=== PATIENT | female | born 2000 | race Caucasian/White ===

== ENCOUNTER → 2021-04-20 | Outpatient (CLI) | payer OTHER ==
[~2021-04-20] MED LIST: BENTYL 20MG TAB20 MG PO; CLEOCIN HCL300 MG PO; MACROBID 100 M100 MG PO; Magic Mouth Wash PO; PREDNISONE50 MG PO; ZOFRAN ODT 4 MG4 MG SL; ZOFRAN4 MG PO
[2021-04-20 17:24] LABS: HEMOGLOBIN 13.5 gm/dl (12.3-15.3); RED BLOOD COUNT 4.46 M/UL (4.00-5.10); WHITE BLOOD COUNT 8.3 K/UL (4.5-11.0)
[2021-04-20 17:42] LABS: BUN/CREATININE RATIO 13 (0-10)
== END ==
LOC: LBRF 16:42
PROVIDERS: Internal Medicine Pulmonary Disease
DX: J47.1 Bronchiectasis with (acute) exacerbation (principal)
CPT/HCPCS: 80048; 85025; 86140

== ENCOUNTER 2021-04-28 23:17 | Emergency (ER) | payer OTHER | END 2021-04-29 01:35 | disposition home or self-care (01) | LOC: ER1 23:17 | DX: S91.205A Unspecified open wound of left lesser toe(s) with damage to nail, initial encounter (principal); Z23 Encounter for immunization; X58.XXXA Exposure to other specified factors, initial encounter | CPT/HCPCS: 73610; 73630; 90715; 99283 ==

== ENCOUNTER → 2021-09-16 | Outpatient (CLI) | payer OTHER | LOC: LAB 08:49 | DX: Z32.00 Encounter for pregnancy test, result unknown (principal) | CPT/HCPCS: 36415; 84702 ==

== ENCOUNTER → 2021-09-18 | Outpatient (CLI) | payer OTHER | LOC: LAB 10:20 | DX: Z32.01 Encounter for pregnancy test, result positive (principal) | CPT/HCPCS: 36415; 84702 ==

== ENCOUNTER → 2021-09-24 | Outpatient (CLI) | payer OTHER | LOC: LAB 08:13 | DX: Z32.01 Encounter for pregnancy test, result positive (principal) | CPT/HCPCS: 36415; 84702 ==

== ENCOUNTER 2021-10-12 16:31 | Emergency (ER) | payer OTHER ==
[2021-10-12 17:48] LABS: HEMOGLOBIN 13.6 gm/dl (12.3-15.3); RED BLOOD COUNT 4.47 M/UL (4.00-5.10); WHITE BLOOD COUNT 14.2 K/UL (4.5-11.0)
[2021-10-12 18:11] LABS: BUN/CREATININE RATIO 13 (0-10)
== END 2021-10-12 20:50 | disposition home or self-care (01) ==
LOC: ER1 16:31
PROVIDERS: Physician Assistant
DX: O99.891 Other specified diseases and conditions complicating pregnancy (principal); R10.32 Left lower quadrant pain; Z90.89 Acquired absence of other organs; Z88.0 Allergy status to penicillin; Z3A.01 Less than 8 weeks gestation of pregnancy
CPT/HCPCS: 76817; 80053; 81001; 84702; 85025; 87086; 99284